=== PATIENT | male | born 1990 | race Hispanic/Latino ===

== ENCOUNTER 2016-10-18 12:19 | Emergency (ER) | payer OTHER ==
[~2016-10-18] VITALS: Ht 182.9 cm; Wt 81.6 kg
[~2016-10-18 12:19] MED LIST: AMOXIL500 MG PO; ATIVAN1 M1 PO; CLONIDINE HCL0.1 MG PO; CLOTRIMAZOLE15 GM TOP; FLONASE120 SPRAY/ NAS; OXYCODONE HCL30 M1 PO; PROMETHAZINE HC25 M3 PO; ZOFRAN ODT4 M1 PO; ZOFRAN4 M2 PO
--- NOTE | 2016-10-18 12:43 | ED GI/GU/ABDOMINAL COMPLAINT ---
History of Present Illness General Chief Complaint: Abdominal Pain/Flank Pain Stated Complaint: ABD PAIN Source: patient Exam Limitations: no limitations Vital Signs & Intake/Output Vital Signs & Intake/Output Vital Signs Date Time Temp Pulse Resp B/P Pulse O2 O2 Flow FiO2 Ox Delivery Rate 10/18 1436 98.1 74 18 142/90 98 Room Air 10/18 1256 Room Air 10/18 1246 97.1 55 20 130/81 99 Room Air 10/18 1243 130/81 10/18 1230 97.2 88 18 99 Room Air Allergies Coded Allergies: NO KNOWN ALLERGIES (12/28/15) Reconcile Medications Clonidine HCl 0.1 MG TABLET 1 TAB PO QPM PRN OPAITE WITHDRAWAL Clotrimazole 15 GM CREAM..G. 1 HILDA TOP TID ringworm apply to affected area(s) for 3 weeks Hyoscyamine (Levsin) 0.125 MG TABLET 1 TAB PO Q4 PRN ABDOMINAL SPASMS Oxycodone HCl 30 MG TABLET 1 TAB PO 4XD-5XD PAIN (Reported) Prochlorperazine Maleate (Compazine) 10 MG TABLET 1 TAB PO TID PRN NAUSEA Triage Note: RECEIVED 26 YO MALE COMES TO THE TRIAGE ROOM RETCHING AND VOMITING IN THE ED. PT REPORTING HE WOKE UP LIKE THIS. PT REPORTING HE WAS DRINKING LAST NIGHT. DIFFICULT TO GET MORE INFO FROM PT. Triage Nurses Notes Reviewed? yes Onset: Gradual Duration: hour(s): (3) Timing: recent history Quality/Severity: severe, stabbing Severity Numbers: 10 Location: epigastric, generalized abdomen Radiation: no radiation Activities at Onset: none Prior Abdominal Problems: similar symptoms Past Sexual History: Unobtainable at this time No Modifying Factors: none HPI: Patient is a 26-year-old male presenting to the emergency department with chief complaint of epigastric pain, nausea, vomiting and retching that started this morning after waking up. History of similar symptoms with opiate withdrawal. Patient reports that he binge drank last night and he took 5 Percocets. He reports that he's had 5 or more episodes of emesis, no blood in emesis. Denies any fevers or chills. No recent travel. No recent antibiotic use. 2 episodes of diarrhea. Denies taking anything for pain prior to arrival. (JAHAIRA QUEVEDO,ION) Past History Travel History Traveled to [place] past 21 day No Medical History Any Pertinent Medical History? 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 No (ION DUNCAN) Review of Systems Review of Systems Constitutional: Reports: no symptoms. Comments Review of systems: See HPI, All other systems negative. Constitutional, no chills fever or weight loss HEENT: No visual changes no sore throat no congestion Cardiovascular: No chest pain ,palpitation Skin, no jaundice no rashes Respiratory: No dyspnea cough sputum or hemoptysis GI: Positive nausea, vomiting, diarrhea : No dysuria No hematuria Muscle skeletal: no back pain, no neck pain, Neurologic: No numbness no confusion Psych: No stress anxiety Immunology: No splenectomy or history of AIDS (ION DUNCAN) Physical Exam Physical Exam General Appearance: well developed/nourished, alert, awake, anxious, moderate distress Gastrointestinal: guarding, hyperactive bowel sounds, diffuse tenderness to palpation Comments: Well-developed well-nourished person in no acute distress HEENT: Pupils equally round and reactive to light and accommodation. Nose is atraumatic. E Neck: Normal inspection Back: Nontender, no CVA tenderness. Full range of motion Cardiovascular: Regular rate and rhythms no murmurs rubs or gallops, normal JVP Respiratory: Chest nontender. No respiratory distress.breath sounds clear to auscultation bilaterally Abdomen: Soft, nontender nondistended, no appreciable organomegaly. Normal bowel sounds. No ascites Extremity: No edema, no calf tenderness to palpation, normal and equal pulses. Neuro: Alert oriented x3, motor sensory normal, cranial nerves II through XII grossly intact. Skin: No appreciable rash on exposed skin, skin is warm and dry. Psych: Mood and affect is normal, memory and judgment is normal. Core Measures ACS in differential dx? No Severe Sepsis Present: No Septic Shock Present: No (ION DUNCAN) Progress Differential Diagnosis: gastritis, ischemic bowel, pancreatitis, ureterolithiasis, UTI/pyelo, cyclical vomiting syndrome, opiate withdrawal Plan of Care: Orders Procedure Date/time Status LACTIC ACID 10/18 1500 Complete Add-on Test (ER Only) 10/18 1330 Active LACTIC ACID 10/18 1240 Complete URINE DRUG SCREEN FOR ER ONLY 10/18 1234 Complete URINALYSIS 10/18 1234 Complete LIPASE 10/18 1234 Complete COMPREHENSIVE METABOLIC PANEL 10/18 1234 Complete CBC WITHOUT DIFFERENTIAL 10/18 1234 Complete AMYLASE 10/18 1234 Complete Laboratory Tests 10/18/16 1507: Lactic Acid 1.8 10/18/16 1430: Urine Opiates Screen 275.00, Methadone Screen < 40, Barbiturate Screen < 60, Ur Phencyclidine Scrn < 6.00, Amphetamines Screen < 100, U Benzodiazepines Scrn < 85, Urine Cocaine Screen 83, Urine Cannabis Screen > 80.00 H, Urine Color YEL, Urine Clarity CLEAR, Urine pH 8.5 H, Ur Specific [place] 1.010, Urine Protein NEG, Urine Ketones TRACE H, Urine Nitrite NEG, Urine Bilirubin NEG, Urine Urobilinogen 0.2, Ur Leukocyte Esterase NEG, Ur Microscopic EXAM NOT REQUIRED, Urine Hemoglobin NEG, Urine Glucose NEG 10/18/16 1240: Anion Gap 16, Estimated GFR > 60, BUN/Creatinine Ratio 15.0, Glucose 105 H, Lactic Acid 4.0 H, Calcium 10.0, Total Bilirubin 0.9, AST 38, ALT 41, Alkaline Phosphatase 69, Total Protein 8.3 H, Albumin 4.8, Globulin 3.5, Albumin/ Globulin Ratio 1.4, Amylase 101, Lipase 76, CBC w Diff MAN DIFF ORDERED, RBC 5.20, MCV 92.8, MCH 31.8 H, RDW 12.6, MPV 8.1, Gran % 82.8 H, Lymphocytes % 13.2 L, Monocytes % 3.5, Eosinophils % 0.3, Basophils % 0.2, Absolute Granulocytes 14.3 H, Absolute Lymphocytes 2.3, Absolute Monocytes 0.6, Absolute Eosinophils 0, Absolute Basophils 0, Platelet Estimate ADEQUATE, Normocytic RBCs VERIFIED, Normochromic RBCs VERIFIED, PUBS MCHC 34.3 Diagnostic Imaging: Viewed by Me: CT Scan. Discussed w/RAD: CT Scan. Radiology Impression: PATIENT: RAFIQ SOLIS PRESENT AGE: 26 PATIENT ACCOUNT NO: [id number] : 88 LOCATION: [facility] ORDERING PHYSICIAN: ION QUEVEDO SERVICE DATE: 10/18/161329 EXAM TYPE: CAT - CT ABD & PELVIS W IV CONTRAST EXAMINATION: CT ABDOMEN AND PELVIS WITH CONTRAST CLINICAL INFORMATION: 26-year-old man with severe abdominal pain. COMPARISON: abdominal CT TECHNIQUE: Multidetector volumetric imaging was performed of the abdomen and pelvis before and after the IV administration of 93 mL of Optiray 320 intravenous contrast. Sagittal and coronal reformatted images were obtained on the technologist's workstation. DLP: 294 mGy-cm. FINDINGS: The lung bases are clear. There is a small hiatal hernia. The liver, spleen, pancreas, adrenals, kidneys, and decompressed gallbladder remain in normal in appearance. Mild fullness of the left renal collecting system is unchanged. Large and small bowel loops are not dilated. The colon is actually completely decompressed, making wall thickness difficult to assess. No mesenteric stranding is perceived however. The terminal ileum is not inflamed. The appendix is not discretely visualized, although there is no inflammatory stranding in the right lower quadrant to suggest acute appendicitis. The prostate, seminal vesicles, and bladder are normal in appearance. IMPRESSION: No acute intra-abdominal process is seen to explain the patient's symptoms. 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 < Electronically signed in Other Vendor System> SIGNED BY: MARIANN MEYER MD 1420 Initial ED EKG: none Comments: Patient given IV fluids, IV Phenergan, IV Ativan for retching. CBC, CMP, lactic acid ordered. CT of the abdomen ordered as well for severe abdominal pain. Patient informed of all of her results, lactic acid seems to be trending downward after IV fluids. Patient tolerating by mouth without difficulty. No longer having abdominal pain on exam. CT is negative for any acute pathology. Likely viral syndrome. Patient educated on signs and symptoms return. Patient nontoxic. (JAHAIRA QUEVEDO,ION) Departure Departure Time of Disposition: 1557 Disposition: HOME OR SELF CARE Condition: Stable Clinical Impression Primary Impression: Nausea vomiting and diarrhea Ruled Out Impressions: Nausea & vomiting Referrals: PATIENT HAS NO PRIMARY CARE DR (PCP/Family) MARBELLA LOAIZA MD Additional Instructions: Follow-up with your primary care physician as well as gastroenterology fear symptoms persist. Take Compazine as prescribed for nausea. Take Levsin to help with abdominal discomfort. Increase fluids. Return for worsening symptoms or concerns. Avoid taking any opiates. Departure Forms: Customer Survey General Discharge Information Prescriptions: Current Visit Scripts Hyoscyamine (Levsin) 1 TAB PO Q4 PRN ABDOMINAL SPASMS #30 TAB Prochlorperazine Maleate (Compazine) 1 TAB PO TID PRN NAUSEA #15 TAB Clonidine HCl 1 TAB PO QPM PRN OPAITE WITHDRAWAL #15 TAB (ION DUNCAN) PA/DOOR CLOSER MECHANIC Co-Sign Statement Statement: ED Attending supervision documentation- [] I saw and evaluated the patient. I have also reviewed all the pertinent lab results and diagnostic results. I agree with the findings and the plan of care as documented in the PA's/DOOR CLOSER MECHANIC's documentation. x I have reviewed the ED Record and agree with the PA's/DOOR CLOSER MECHANIC's documentation. [] Additions or exceptions (if any) to the PAs/DOOR CLOSER MECHANIC's note and plan are summarized below: [] (DEBO HUNT,LORI)
[2016-10-18 13:06] LABS: ABSOLUTE BASOPHIL COUNT 0 /CUMM (0.0-0.2); ABSOLUTE EOSINOPHIL COUNT 0 /CUMM (0.0-0.7); ABSOLUTE GRANULOCYTE CT 14.3 /CUMM (1.4-6.5); ABSOLUTE LYMPH COUNT 2.3 /CUMM (1.2-3.4); ABSOLUTE MONOCYTE COUNT 0.6 /CUMM (0.10-0.60); BASOPHIL % 0.2 % (0.0-2.0); EOSINOPHIL % 0.3 % (0-5); GRANULOCYTE % 82.8 % (42.2-75.2); HEMATOCRIT 48.2 % (42-52); MEAN CORPUSCULAR HGB 31.8 PG (27.0-31.0); MEAN CORPUSCULAR HGB CONC 34.3 G/DL (33.0-37.0); MEAN CORPUSCULAR VOLUME 92.8 FL (80.0-94.0); MEAN PLATELET VOLUME 8.1 FL (7.4-10.4); PLATELET COUNT 258 /CUMM (130-400); RBC DISTRIBUTION WIDTH 12.6 % (11.5-14.5); WHITE BLOOD CELL COUNT 17.2 /CUMM (4.8-10.8)
--- NOTE | 2016-10-18 14:20 | CT SCAN REPORT ---
EXAMINATION: CT ABDOMEN AND PELVIS WITH CONTRAST CLINICAL INFORMATION: 26-year-old man with severe abdominal pain. COMPARISON: 04/08/[address] TECHNIQUE: Multidetector volumetric imaging was performed of the abdomen and pelvis before and after the IV administration of 93 mL of Optiray 320 intravenous contrast. Sagittal and coronal reformatted images were obtained on the technologist's workstation. DLP: 294 mGy-cm. FINDINGS: The lung bases are clear. There is a small hiatal hernia. The liver, spleen, pancreas, adrenals, kidneys, and decompressed gallbladder remain in normal in appearance. Mild fullness of the left renal collecting system is unchanged. Large and small bowel loops are not dilated. The colon is actually completely decompressed, making wall thickness difficult to assess. No mesenteric stranding is perceived however. The terminal ileum is not inflamed. The appendix is not discretely visualized, although there is no inflammatory stranding in the right lower quadrant to suggest acute appendicitis. The prostate, seminal vesicles, and bladder are normal in appearance. IMPRESSION: No acute intra-abdominal process is seen to explain the patient's symptoms.
[2016-10-18] MEDS ORDERED: COMPAZINE10 M1 PO (14:58)
[2016-10-18] MEDS ORDERED: LEVSIN0.125 M1 PO (14:58)
[2016-10-18] MEDS ORDERED: CLONIDINE HCL0.1 MG PO (14:58)
[2016-10-18 16:12] VITALS: BP 141/65
== END 2016-10-18 16:16 ==
LOC: ERH 12:19
PROVIDERS: Physician Assistant
DX: R11.2 Nausea with vomiting, unspecified (principal); R19.7 Diarrhea, unspecified
CPT/HCPCS: 74177; 80307; 81003; 96360; 96361; 96372; 96374; 96375; J1885; J2550; J3250

== ENCOUNTER 2016-11-30 10:18 | Emergency (ER) | payer OTHER ==
[~2016-11-30] VITALS: Ht 175.3 cm; Wt 72.6 kg
[~2016-11-30 10:18] MED LIST changes: +COMPAZINE10 M1 PO; +LEVSIN0.125 M1 PO
--- NOTE | 2016-11-30 10:32 | ED GENERAL ADULT ---
History of Present Illness General Chief Complaint: General Adult Stated Complaint: "I DRANK TO MUCH LAST NIGHT" Source: patient, GIRLFRIEND, MOTHER Exam Limitations: no limitations Vital Signs & Intake/Output Vital Signs & Intake/Output Vital Signs Date Time Temp Pulse Resp B/P Pulse O2 O2 Flow FiO2 Ox Delivery Rate 11/30 1126 99 Room Air 11/30 1027 97.7 65 18 126/78 98 Room Air Allergies Coded Allergies: NO KNOWN ALLERGIES (11/30/16) Reconcile Medications Clonidine HCl 0.1 MG TABLET 1 TAB PO BID PRN OPIATE WITHDRAWL Clonidine HCl 0.1 MG TABLET 1 TAB PO QPM PRN OPAITE WITHDRAWAL Clotrimazole 15 GM CREAM..G. 1 HILDA TOP TID ringworm apply to affected area(s) for 3 weeks Hyoscyamine (Levsin) 0.125 MG TABLET 1 TAB PO Q4 PRN ABDOMINAL SPASMS Ibuprofen 800 MG TABLET 1 TAB PO TID PAIN Ondansetron (Zofran Odt) 4 MG TAB.RAPDIS 1 TAB PO Q6 PRN NAUSEA Oxycodone HCl 30 MG TABLET 1 TAB PO 4XD-5XD PAIN (Reported) Prochlorperazine Maleate (Compazine) 10 MG TABLET 1 TAB PO TID PRN NAUSEA Triage Note: TRIAGE: PT TO ER WITH HIS [place] MOTHER C/C N/V S/P DRINKING TOO MUCH LAST NIGHT. PT MOANING IN W/C REQUESTING WATER TO DRINK. ADVISED TO BE NPO WHILE SYMPTOMATIC. STATES HE DRANK "1/2 A BOTTLE OF LIQOUR". DENIES DAILY DRINKING. DENIES ANY PAIN. COMPLAINS ONLY OF N/V. Triage Nurses Notes Reviewed? yes Onset: Abrupt Duration: hour(s): (5) Timing: multiple episodes today Injury Environment: home Severity: severe Modifying Factors: Worsens With: eating. Associated Symptoms: NAUSEA, VOMITING, ABDOMINAL CRAMPING HPI: 26 year old male brought to the ER by his girlfriend who presents for nausea and vomiting since 6 am. Vomiting is bilious, non bloody, vomiting every hour. He is trying to drink water but unable to hold it down. Yesterday he took [address] and one pill with OP marked on it. He reports he usually takes 3-4 10 mg percocet per day for recreational purposes. Last used marijuana yesterday. Patient drank half a bottle of liquor yesterday. Here in the ED previously with similar symptoms. Past History Travel History Traveled to [place] past 21 day No Medical History Any Pertinent Medical History? 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 No Review of Systems Review of Systems Constitutional: Denies: chills, fever. EENTM: Reports: no symptoms. Respiratory: Denies: cough, short of breath, sputum production. Cardiovascular: Denies: chest pain, palpitations. GI: Reports: abdominal pain, nausea, vomiting. Genitourinary: Denies: discharge, dysuria. Musculoskeletal: Reports: no symptoms. Skin: Reports: no symptoms. Neurological/Psychological: Reports: anxiety. Hematologic/Endocrine: Denies: bruising, bleeding, polyuria, polydipsia. Immunologic/Allergic: Denies: splenectomy. All Other Systems: Reviewed and Negative Physical Exam Physical Exam General Appearance: well developed/nourished, alert, awake, anxious, mild distress Head: atraumatic Eyes: Bilateral: normal appearance, PERRL, EOMI. Ears, Nose, Throat: normal pharynx, normal ENT inspection, hearing grossly normal Neck: normal inspection, supple, full range of motion Respiratory: normal breath sounds, chest non-tender, no respiratory distress Cardiovascular: regular rate/rhythm Peripheral Pulses: 2+ radial (R), 2+ radial (L) Gastrointestinal: soft, tenderness (MILD DIFFUSELY, NO REBOUND OR ) Back: normal inspection, normal range of motion Neurologic/Psych: awake, alert, oriented x 3 Core Measures ACS in differential dx? No CVA/TIA Diagnosis: No Severe Sepsis Present: No Septic Shock Present: No Progress Differential Diagnoses I considered the following diagnoses in my evaluation of the patient: [SUBSTANCE ABUSE, SUBSTANCE WITHDRAWAL, ALCOHOL ABUSE] Plan of Care: Orders Procedure Date/time Status Add-on Test (ER Only) 11/30 1108 Active LIPASE 11/30 1057 Complete URINE DRUGS OF ABUSE 11/30 1032 Complete ETHANOL 11/30 1032 Complete COMPREHENSIVE METABOLIC PANEL 11/30 1032 Complete CBC WITHOUT DIFFERENTIAL 11/30 1032 Complete Current Medications Sig/Segun Start time Last Medication Dose Stop Time Status Admin Clonidine 0.1 MG ONCE ONE 11/30 1215 UNVr (Catapres) 11/30 1216 Laboratory Tests 11/30/16 1116: Urine Opiates Screen > 4000.00 H, Methadone Screen 63, Barbiturate Screen < 60, Ur Phencyclidine Scrn < 6.00, Amphetamines Screen < 100, U Benzodiazepines Scrn < 85, Urine Cocaine Screen 89, Urine Cannabis Screen > 80.00 H 11/30/16 1057: Anion Gap 11, Estimated GFR > 60, BUN/Creatinine Ratio 11.3, Glucose 137 H, Calcium 9.7, Total Bilirubin 0.5, AST 24, ALT 26, Alkaline Phosphatase 62, Total Protein 7.4, Albumin 4.3, Globulin 3.1, Albumin/Globulin Ratio 1.4, Lipase 47, CBC w Diff NO MAN DIFF REQ, RBC 4.65 L, MCV 93.8, MCH 31.3 H, RDW 12.6, MPV 8.0, Gran % 79.3 H, Lymphocytes % 15.8 L, Monocytes % 4.1, Eosinophils % 0.5, Basophils % 0.3, Absolute Granulocytes 8.4 H, Absolute Lymphocytes 1.7, Absolute Monocytes 0.4, Absolute Eosinophils 0, Absolute Basophils 0, PUBS MCHC 33.4, Serum Alcohol < 10.0 Patient feeling better after zofran and bentyl. Able to tolerate PO clonidine. Alcohol level is negative. Symptoms consistent with narcotic withdrawal. List of outpatient detox facilities given for follow up. (KATHY HUNT,ADRIEL) Initial ED EKG: none Departure Departure Disposition: HOME OR SELF CARE Condition: Stable Clinical Impression Primary Impression: Opiate withdrawal Referrals: PATIENT HAS NO PRIMARY CARE DR (PCP/Family) Additional Instructions: Take the clonidine, ibuprofen and Zofran as directed. Please follow up with list of outpatient opiate detox facilities. Return as needed. Departure Forms: Customer Survey General Discharge Information Prescriptions: Current Visit Scripts Ondansetron (Zofran Odt) 1 TAB PO Q6 PRN NAUSEA #20 TAB Ibuprofen 1 TAB PO TID #30 TAB Clonidine HCl 1 TAB PO BID PRN OPIATE WITHDRAWL #12 TAB Critical Care Note Critical Care Note Critical Care Time: non-applicable
[2016-11-30 11:05] LABS: ABSOLUTE BASOPHIL COUNT 0 /CUMM (0.0-0.2); ABSOLUTE EOSINOPHIL COUNT 0 /CUMM (0.0-0.7); ABSOLUTE GRANULOCYTE CT 8.4 /CUMM (1.4-6.5); ABSOLUTE LYMPH COUNT 1.7 /CUMM (1.2-3.4); ABSOLUTE MONOCYTE COUNT 0.4 /CUMM (0.10-0.60); BASOPHIL % 0.3 % (0.0-2.0); EOSINOPHIL % 0.5 % (0-5); GRANULOCYTE % 79.3 % (42.2-75.2); HEMATOCRIT 43.6 % (42-52); MEAN CORPUSCULAR HGB 31.3 PG (27.0-31.0); MEAN CORPUSCULAR HGB CONC 33.4 G/DL (33.0-37.0); MEAN CORPUSCULAR VOLUME 93.8 FL (80.0-94.0); PLATELET COUNT 236 /CUMM (130-400); RBC DISTRIBUTION WIDTH 12.6 % (11.5-14.5); RED BLOOD CELL CT 4.65 /CUMM (4.70-6.10); WHITE BLOOD CELL COUNT 10.6 /CUMM (4.8-10.8)
[2016-11-30] MEDS ORDERED: CLONIDINE HCL0.1 MG PO (12:16)
[2016-11-30] MEDS ORDERED: ZOFRAN ODT4 M1 PO (12:16)
[2016-11-30] MEDS ORDERED: IBUPROFEN800 M1 PO (12:16)
[2016-11-30 13:08] VITALS: BP 124/74
== END 2016-11-30 13:08 ==
LOC: ERH 10:18
PROVIDERS: Emergency Medicine
DX: F11.23 Opioid dependence with withdrawal (principal)
CPT/HCPCS: 80307; 96372; 96374; G0480; J0500; J2405

== ENCOUNTER 2016-12-06 04:04 | Emergency (ER) | payer OTHER ==
[~2016-12-06] VITALS: Ht 175.3 cm; Wt 72.6 kg
[~2016-12-06 04:04] MED LIST changes: +IBUPROFEN800 M1 PO
--- NOTE | 2016-12-06 04:43 | ED GI/GU/ABDOMINAL COMPLAINT ---
History of Present Illness General Chief Complaint: Abdominal Pain/Flank Pain Stated Complaint: ABD PAIN Source: patient Exam Limitations: no limitations Vital Signs & Intake/Output Vital Signs & Intake/Output Vital Signs Date Time Temp Pulse Resp B/P Pulse O2 O2 Flow FiO2 Ox Delivery Rate 12/06 0411 98.8 60 18 124/66 96 Room Air Allergies Coded Allergies: NO KNOWN ALLERGIES (11/30/16) Reconcile Medications Clonidine HCl 0.1 MG TABLET 1 TAB PO BID PRN OPIATE WITHDRAWL Clonidine HCl 0.1 MG TABLET 1 TAB PO QPM PRN OPAITE WITHDRAWAL Clotrimazole 15 GM CREAM..G. 1 HILDA TOP TID ringworm apply to affected area(s) for 3 weeks Dicyclomine Hydrochloride (Bentyl) 10 MG CAPSULE 1 CAP PO TID PRN SPASM Hyoscyamine (Levsin) 0.125 MG TABLET 1 TAB PO Q4 PRN ABDOMINAL SPASMS Ibuprofen 800 MG TABLET 1 TAB PO TID PAIN Ondansetron (Zofran Odt) 4 MG TAB.RAPDIS 1 TAB PO Q6 PRN NAUSEA Oxycodone HCl 30 MG TABLET 1 TAB PO 4XD-5XD PAIN (Reported) Prochlorperazine Maleate (Compazine) 10 MG TABLET 1 TAB PO TID PRN NAUSEA Triage Note: 26 YEAR OLD MALE TO ER , OPT COMOPLAINS OF MID ABD PAIN , SHARP AND CONSTANT. STATES THAT IT STARTED AROUND 2100 AFTER EATING DOMINOS. PT STATES THAT HE WAS AT [facility] X 3 HOURS PRIOR TO COMING TO [place]. PT WAS EVALUATED HERE A FEW DAYS AGO FOR OPIOD WITHDRAWAL AND DISCHARGED WITH MEDS TO HELP HIM . PT ROLLLING AROUND ON STRETCHER, REQUEST WATER FOR HIS DRY MOUTH, PT AWARE THAT HE CAN NOT HAVE ANY FLUIDS AT THIS TIME AND PROVIDED WITH LEMON SWABS AT THIS TIME, BUT PT REFUSED. STRONG MARAJUANNA ODOR NOTED AT [facility], BUT PT DENIES USE TONIGHT. PT NOTED TO BE DRY HEAVING Triage Nurses Notes Reviewed? yes Onset: Abrupt Duration: day(s): (5) Timing: multiple episodes today Quality/Severity: moderate Location: generalized abdomen Radiation: no radiation Activities at Onset: STOPPED USING OPIATES Associated Symptoms: abdominal pain, diarrhea, nausea/vomiting HPI: 26-year-old male presents the ER chief complaint of abdominal pain nausea vomiting and cramping since Thursday. He was seen here in Thursday and discharged with prescriptions for clonidine Zofran and ibuprofen secondary to opiate withdrawal. He says he has not used any medications over the street since that time. He reports that nothing solid to stay down since Thursday. Tonight he had [employer] to the was hungry and started to have severe cramping abdominal pain after that. Past History Travel History Traveled to [place] past 21 day No Medical History Any Pertinent Medical History? 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 No Review of Systems Review of Systems Constitutional: Reports: chills. Denies: fever. EENTM: Reports: no symptoms. Respiratory: Denies: cough, short of breath. Cardiovascular: Denies: chest pain, palpitations. GI: Reports: abdominal pain, diarrhea, nausea, vomiting. Genitourinary: Denies: discharge, dysuria. Musculoskeletal: Reports: no symptoms. Skin: Reports: no symptoms. Neurological/Psychological: Reports: no symptoms. Hematologic/Endocrine: Denies: bruising, bleeding, polyuria, polydipsia. Immunologic/Allergic: Denies: splenectomy. All Other Systems: Reviewed and Negative Physical Exam Physical Exam General Appearance: alert, awake, anxious, mild distress, obese Head: atraumatic, normal appearance Eyes: Bilateral: normal appearance, PERRL, EOMI. Ears, Nose, Throat, Mouth: hearing grossly normal, moist mucous membrane Neck: normal inspection, supple, full range of motion Respiratory: normal breath sounds, chest non-tender, no respiratory distress Cardiovascular: regular rate/rhythm Peripheral Pulses: 2+ radial (R), 2+ radial (L) Gastrointestinal: soft, tenderness (MILD DIFFUSE), NO REBOUND/GUARDING Extremities: normal range of motion Neurologic/Psych: no motor/sensory deficits, awake, alert, oriented x 3 Skin: intact, normal color, warm/dry Core Measures ACS in differential dx? No Severe Sepsis Present: No Septic Shock Present: No Progress Differential Diagnosis: NARCOTIC WITHDRAWAL, GASTROENTERITIS, RENA, DEHYDRATION, ELECTROLYTE DISTURBANCE Plan of Care: Orders Procedure Date/time Status URINE DRUGS OF ABUSE 12/06 0449 Active SALINE, ZOFRAN, BENTYL, ATIVAN ORDERED. UTOX ORDERED. NO VOMITING IN ED. REPEAT FLUID VOLUS ORDERED. PATIENT FEELING BETTER. STABLE FOR DISCHARGE. URINE NOT SUBMITTED. (KATHY HUNT,ADRIEL) Initial ED EKG: none Departure Departure Time of Disposition: 632 Disposition: HOME OR SELF CARE Condition: Stable Clinical Impression Primary Impression: Opiate withdrawal Referrals: PATIENT HAS NO PRIMARY CARE DR (PCP/Family) Additional Instructions: CONTINUE THE IBUPROFEN AND ZOFRAN DIRECTED. TAKE THE BENTYL DIRECTED. FOLLOW UP WITH THE LIST OF OUTPATIENT DETOX FACILITIES. Departure Forms: Customer Survey General Discharge Information Prescriptions: Current Visit Scripts Dicyclomine Hydrochloride (Bentyl) 1 CAP PO TID PRN SPASM #20 CAP
[2016-12-06] MEDS ORDERED: BENTYL10 M1 PO (06:34)
[2016-12-06 06:43] VITALS: BP 130/72
== END 2016-12-06 06:44 ==
LOC: ERH 04:04
DX: F11.23 Opioid dependence with withdrawal (principal)
CPT/HCPCS: 80307; 96372; 96374; 96375; J0500; J2405